=== PATIENT | male | born 1970 | race Caucasian/White ===

== ENCOUNTER 2018-09-13 12:33 | Day surgery (SDC) | payer OTHER, MEDICAID ==
[~2018-09-13 12:33] MED LIST: CEFAZOLIN 2 GM/50 ML (PMX) 50 ML IVPB
[2018-09-13 13:17] LABS: ADD MAN DIFF? NO
[2018-09-13 13:18] LABS: WHITE BLOOD COUNT 10.2 10^3/ul (4.8-10.8)
[2018-09-13 13:18] LABS: BASOPHILS % 0.2 % (0.0-2.0); EOSINOPHILS # 0.1 10^3/ul (0.0-0.5); EOSINOPHILS % 0.8 % (0.0-7.0); HEMATOCRIT 43.9 % (42.0-52.0); HEMOGLOBIN 14.9 g/dl (14.0-18.0); LYMPHOCYTES # 1.3 10^3/ul (0.8-2.9); LYMPHOCYTES % 13.1 % (15.0-51.0); MEAN CORPUSCULAR HEMOGLOBIN 29.3 pg (29.0-33.0); MEAN CORPUSCULAR HGB CONC 33.9 g/dl (32.0-37.0); MEAN CORPUSCULAR VOLUME 86.2 fl (82.0-101.0); MEAN PLATELET VOLUME 10.2 fl (7.4-10.4); MONOCYTE # 0.6 10^3/ul (0.3-0.9); MONOCYTES % 6.3 % (0.0-11.0); NEUTROPHIL # 8.1 10^3/ul (1.6-7.5); NEUTROPHILS % 79.3 % (39.0-77.0); PLATELET COUNT 208 10^3/UL (140-415); RED BLOOD COUNT 5.09 10^6/ul (4.70-6.10); RED CELL DISTRIBUTION WIDTH 12.9 % (11.5-14.5)
[2018-09-13 13:37] LABS: ALANINE AMINOTRANSFERASE 26 IU/L (13-69); ALBUMIN 4.3 g/dl (3.3-4.9); ALBUMIN/GLOBULIN RATIO 1.43; ALKALINE PHOSPHATASE 61 IU/L (42-121); ANION GAP 11 (5-13); ASPARTATE AMINO TRANSFERASE 27 IU/L (15-46); BILIRUBIN,INDIRECT 0.9 mg/dl (0-1.1); BILIRUBIN,TOTAL 0.9 mg/dl (0.2-1.3); BLOOD UREA NITROGEN 17 mg/dl (7-20); CALCIUM 8.9 mg/dl (8.4-10.2); CARBON DIOXIDE 23 mmol/L (21-31); CHLORIDE 108 mmol/L (97-110); CREATININE 0.78 mg/dl (0.61-1.24); Estimated GFR > 60 mL/min (>60); GLUCOSE 98 mg/dl (70-220); POTASSIUM 3.9 mmol/L (3.5-5.1); SODIUM 142 mmol/L (135-144); TOTAL PROTEIN 7.3 g/dl (6.1-8.1)
[2018-09-13 13:40] LABS: PARTIAL THROMBOPLASTIN TIME 26.8 Sec (23.0-35.0); PROTIME 14.3 Sec (11.9-14.9); PT RATIO 1.1
[2018-09-13] MEDS: LACTATED RINGER'S 1,000 ML IV (13:48)
[2018-09-13] MEDS ORDERED: MIDAZOLAM 1 MG/ML 2 ML INJ (15:10)
[2018-09-13] MEDS ORDERED: FENTAnyl 50 MCG/ML VIAL (15:10)
[2018-09-13] MEDS: BUPIVACAINE 0.5% (SDV) 30 ML INJ (15:25)
[2018-09-13] MEDS: POLYMYXIN/BACITRACIN 1L IRRIG IRR (15:26)
[2018-09-13] MEDS ORDERED: CEFAZOLIN 1 GM INJ (15:50)
[2018-09-13] MEDS ORDERED: PROPOFOL 20 ML (15:50)
[2018-09-13] MEDS ORDERED: ONDANSETRON 4 MG INJ (15:50)
[2018-09-13] MEDS ORDERED: LIDOCAINE 2% (SDV) 5 ML INJ (15:50)
[2018-09-13] MEDS ORDERED: POLYMYXIN/BACITRACIN 1L IRRIG (16:20)
[2018-09-13] MEDS ORDERED: ONDANSETRON 4 MG INJ IV (16:30)
[2018-09-13] MEDS ORDERED: DIPHENHYDRAMINE 50 MG INJ IV (16:30)
[2018-09-13] MEDS ORDERED: KETOROLAC 30 MG INJ IV (16:30)
[2018-09-13] MEDS ORDERED: HYDROmorphONE 1 MG/5 ML IV SYRINGE IV (16:30)
[2018-09-13] MEDS ORDERED: MEPERIDINE 25 MG INJ IV (16:30)
[2018-09-13] MEDS ORDERED: METOCLOPRAMIDE 10 MG INJ IV (16:30)
[2018-09-13] MEDS: HYDROmorphONE 1 MG/5 ML IV SYRINGE IV ×2 (16:36→16:58)
[2018-09-13] MEDS: FENTAnyl 50 MCG/ML VIAL IV ×2 (16:36→16:59)
[2018-09-13] MEDS: OXYCODONE/ACETAMINOPHEN (5/325) TAB PO (17:45)
== END 2018-09-13 17:57 | disposition home or self-care (01) ==
LOC: SDS 12:33
DX: M89.9 Disorder of bone, unspecified (principal)
CPT/HCPCS: 15275; 71045; 80053; 85025; 85610; 85730; 88307; 93005